=== PATIENT | female | born 1985 | race Caucasian/White ===

== ENCOUNTER 2017-05-25 22:15 | Emergency (ER) | payer OTHER, MEDICAID ==
[~2017-05-25] VITALS: Ht 160 cm; Wt 92.1 kg
[~2017-05-25 22:15] MED LIST: ACYCLOVIR800 MG PO; AMOXICILLIN 50500 MG PO; FENOFIBRATE MI200 MG PO; FLEXERIL10 MG PO; FLUOXETINE20 M2 PO; GLIPIZIDE 5MG TA5 MG PO; IBUPROFEN600 MG PO; LISINOPRIL2.5 M1 PO; METFORMIN ER500 MG PO; NAPROSYN250 M1 PO; PHENERGAN VC +120 ML PO; PREDNISONE50 MG PO; SUDAFED 12HR120 MG PO; TESSALON PERLE100 M1 PO; TRAMADOL 50MG T50 MG PO; VIBRA-TABS100 MG PO; VITAMIN D1000 IU PO; VOLTAREN75 MG PO; ZITHROMAX Z PA250 MG PO
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
[2017-05-26] VITALS: BP 124/67
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
== END 2017-05-26 00:01 | disposition home or self-care (01) ==
LOC: ER 22:15
DX: S70.12XA Contusion of left thigh, initial encounter (principal); V89.2XXA Person injured in unspecified motor-vehicle accident, traffic, initial encounter; Z72.0 Tobacco use; E11.9 Type 2 diabetes mellitus without complications; Z79.4 Long term (current) use of insulin